=== PATIENT | female | born 1975 | race Caucasian/White ===

== ENCOUNTER 2022-09-16 12:37 | Outpatient (CLI) | payer OTHER, SELFPAY ==
--- OUTSIDE RECORDS SUMMARY | 2022-09-16 07:58 | XMS_ITS | Clinical Summary ---
:1975 Author Organization [facility] [place] [address] Care Team Providers Name Role Phone Pcp, No Unavailable Unavailable Pcp, No Primary Care Provider Unavailable Allergies No known active allergies Medications Medication Sig Dispensed Refills Start Date End Date Status levonorgestrel Inject 1 Device 1 Device 0 06/25/2015 Active intrauterine device intrauterine every (MIRENA) 20 mcg/24 hr 5 years. (5 years) IUD fluticasone (50 mcg Inhale 1 [place] into 3 Bottle 3 04/03/2018 Active per actuation) nasal both nostrils once solution daily. Will call (FLONASE)Indications: for refill Environmental allergies Hospital, Clinic, or Other Ordered Dose Route Frequency Start Date End Date Status Facility Administered Medication levonorgestrel intrauterine 1 Device IU Q 5 YEARS 06/25/2015 Active device 1 Device (MIRENA)Indications: Encounter for IUD insertion Active Problems Problem Noted Date Environmental allergies 07/08/2014 Immunizations Name Administration Dates Next Due AMB INFLUENZA, IIV4 (AGE=>6MOS) 08/07/2018 MDV (Flu Clinic Only) AMB Influenza, (Flumist) Live 08/10/2013 Intranasal,LAIV4 (Flu Clinic Only) AMB Influenza, IIV3 (Age >=3 09/05/2011, 09/20/2010 years)(Flu Clinic Only) AMB Influenza, IIV4 PF (=>6 mos 09/01/2020, 08/23/2019, 11/11/2016, Flulaval,Fluzone Fluarix)(Flu 09/23/2016 Clinic Only) Influenza, IIV3 (Age >=3 years) 07/31/2012 Influenza, IIV4 08/14/2015 Tdap 07/31/2012 Family History Medical History Relation Name Comments Good Health Father Hyperlipidemia Mother Hypertension Mother Diabetes Paternal Aunt Diabetes Paternal Uncle Relation Name Status Comments Father Mother Paternal Aunt Paternal Uncle Social History Tobacco Use Types Packs/Day Years Used Date Never Smoker Smokeless Tobacco: Never Used Tobacco Cessation: Counseling Given: Yes Alcohol Use Standard Drinks/Week Comments Yes 0 (1 standard drink = 0.6 oz pure alcoho l) 1-2 drinks a week Alcohol Habits Answer Date Recorded How often do you have a drink containing alcohol? Not asked How many drinks containing alcohol do you have on a Not aske d typical day when you are drinking? How often do you have six or more drinks on one Not asked occasion? Comment: 1-2 drinks a week 07/31/2012 Sex Assigned at Date Recorded Not on file Obstetrics History Para Term AB IAB SAB Ectopic Multiple Living Live Births 4 3 3 1 1 3 Date Outcome GA Total Labor/2nd/3rd Weight Sex Delivery Anes PTL Erika A 1 A5 Name Clin Labor Term Term Term SAB Last Filed Vital Signs Vital Sign Reading Time Taken Comments Blood Pressure 110/71 04/03/2018 2:29 PM CDT tower Pulse 72 04/03/2018 2:29 PM CDT Temperature 36.7 ??C (98.1 ??F) 08/04/2016 12:50 PM CDT Respiratory Rate - - Oxygen Saturation 98% 04/03/2018 2:29 PM CDT Inhaled Oxygen Concentration - - Weight 74.2 kg (163 lb 9.6 oz) 04/03/2018 2:29 PM CDT Height 163.4 cm (5' 4.33) 04/03/2018 2:29 PM CDT Body Mass Index 27.79 04/03/2018 2:29 PM CDT Plan of Treatment Health Maintenance Due Date Last Done Comments COVID-19 vaccine series (#1) 05/24/1976 Hepatitis C screening for age 0111/24/1993 18-79 BMI (ht and wt on same day) for 04/03/2019 04/03/2018, 03/2016 age 18+ Depression screening for age 12+ 04/03/2019 04/03/2018, 03/2016 Colonoscopy through age 75 2020 Mammogram for age 45-75 2020 06/13/2018, 04/12/2017 Influenza for age 9-49 06/30/2022 09/01/2020, 08/23/2019, 08/07/2018, Additional history exists Tetanus booster 07/31/2022 07/31/2012, 07/31/2012 Lipids for age 45-75 06/13/2023 06/13/2018, 05/30/2014 Pap test for age 21-65 04/02/2024 04/02/2021, 04/02/2021, 04/03/2018, Additional history exists Tdap Completed 07/31/2012 Results Not on filefrom Last 3 Months Insurance Payer Benefit Plan / Subscriber ID Effective Dates Phone Addre ss Type [employer] [id number] 2019-Present [address] [place] [address] Care Teams Adjuster Relationship Specialty Start Date End Date Pcp, No PCP - General 10/05/18 . Pcp, No 05/27/14 .
[2022-09-16 09:23] LABS: Albumin* 4.1 g/dL (3.3-5.0); Chloride* 106 mmol/L (96-114); Potassium* 4.1 mmol/L (3.6-5.1); Sodium* 140 mmol/L (135-149)
[2022-09-16 09:25] LABS: Cholesterol* 124 mg/dL (90-199)
[2022-09-16 09:26] LABS: Alanine Aminotransferase* 26 U/L (4-35); Alkaline Phosphatase* 62 U/L (40-150); Aspartate Amino Transferase* 36 U/L (12-35); Bilirubin Total* 0.7 mg/dL (0.1-1.5); Blood Urea Nitrogen* 13 mg/dL (5-24); Carbon Dioxide* 29 mmol/L (20-32); Creatinine* 0.8 mg/dL (0.5-1.5); Estimated Glomerular Filt Rate 92 ml/min; Glucose* 86 mg/dL (60-115); Triglycerides* 76 mg/dL (40-149)
[2022-09-16 09:27] LABS: HDL Cholesterol* 46 mg/dL (>=50); LDL Cholesterol Calculated 63 mg/dL (<100)
== END 2022-09-16 12:38 | disposition home or self-care (01) ==
PROVIDERS: PCP Family Medicine; Visit Provider Family Medicine
DX: Z01.419 Encounter for gynecological examination (general) (routine) without abnormal findings (principal); Z13.6 Encounter for screening for cardiovascular disorders; R74.01 Elevation of levels of liver transaminase levels; E66.3 Overweight
CPT/HCPCS: 80053; 80061

== ENCOUNTER 2022-09-26 14:28 | Outpatient (CLI) | payer OTHER, SELFPAY ==
--- NOTE | 2022-09-26 14:40 | CRLHL7_ITS ---
For Patients: As a result of the Century Cures Act, medical imaging exams and procedure reports are released immediately into your electronic medical record. You may view this report before your referring provider. If you have questions, please contact your health care provider. BILATERAL SCREENING MAMMOGRAM WITH COMPUTER-AIDED DETECTION TECHNIQUE: CC and MLO views were obtained. These mammographic images have been obtained using full-field digital technique. These mammographic images were interpreted with the benefit of computer-aided detection. COMPARISON FILM: 08/24/21, 07/24/20, 06/25/19. FINDINGS: There are scattered areas of fibroglandular density. IMPRESSION: There is no radiographic evidence for malignancy. ASSESSMENT: BI-RADS Category 1: Negative RECOMMENDATION: Routine screening mammogram in 1 year. A lay language report of this examination will be provided to the patient. CHUY REYNA M.D. Diagnostic Radiologist [email or web address] Transcribed: 3:[address]/Dictated by: Chuy Reyna MD @ 09/27/2022 12:47:00 PM (Electronically Signed)
--- OUTSIDE RECORDS SUMMARY | 2022-09-26 14:51 | XMS_ITS | Clinical Summary ---
:1975 Author Organization [facility] [place] [address] Care Team Providers Name Role Phone Pcp, No Unavailable Unavailable Pcp, No Primary Care Provider Unavailable Allergies No known active allergies Medications Medication Sig Dispensed Refills Start Date End Date Status levonorgestrel Inject 1 Device 1 Device 0 06/25/2015 Active intrauterine device intrauterine every (MIRENA) 20 mcg/24 hr 5 years. (5 years) IUD fluticasone (50 mcg Inhale 1 [place] into 3 Bottle 3 04/03/2018 Active per [...] Done Comments COVID-19 vaccine series (#1) 05/24/1976 HIV for age 15-65 1990 Hepatitis C screening for age 0111/24/1993 18-79 [...] Effective Dates Phone Addre ss Type Group [employer] [id number] 2019-Present [address] [place] [address] Care Teams Cop Winder Relationship Specialty Start Date End Date Pcp, No PCP - General 10/05/18 . Pcp, No 05/27/14 .
== END 2022-09-26 14:29 | disposition home or self-care (01) ==
LOC: MAMMO 14:29
PROVIDERS: PCP Family Medicine; Visit Provider Family Medicine
DX: Z12.31 Encounter for screening mammogram for malignant neoplasm of breast (principal)
CPT/HCPCS: 77063; 77067

== ENCOUNTER 2022-12-16 08:59 | Outpatient (CLI) | payer OTHER, SELFPAY | END 2022-12-16 09:00 | disposition home or self-care (01) | PROVIDERS: PCP Family Medicine; Visit Provider Family Medicine | DX: N39.0 Urinary tract infection, site not specified (principal) | CPT/HCPCS: 87086; 87186 ==

== ENCOUNTER 2023-10-31 07:59 | Outpatient (CLI) | payer OTHER, SELFPAY | END 2023-10-31 08:00 | disposition home or self-care (01) | LOC: NFLDREF 11-01 12:15 | PROVIDERS: PCP Family Medicine; Referring Provider Family Medicine; Visit Provider Family Medicine | DX: Z13.9 Encounter for screening, unspecified (principal); Z13.6 Encounter for screening for cardiovascular disorders | CPT/HCPCS: 80053; 80061 ==

== ENCOUNTER 2023-10-31 08:04 | Outpatient (CLI) | payer OTHER, SELFPAY ==
--- NOTE | 2023-10-31 08:15 | CRLHL7_ITS ---
For Patients: As a result of the Cures Act, medical imaging exams and procedure reports are released immediately into your electronic medical record. You may view this report before your referring provider. If you have questions, please contact your health care provider. BILATERAL SCREENING MAMMOGRAM WITH COMPUTER-AIDED DETECTION AND TOMOSYNTHESIS TECHNIQUE: CC and MLO views were obtained. These mammographic images have been obtained using full-field digital technique. These mammographic images were interpreted with the benefit of computer-aided detection. Breast Tomosynthesis was used in this interpretation. COMPARISON FILM: 09/26/22, 08/24/21, 07/24/20. FINDINGS: There are scattered areas of fibroglandular density IMPRESSION: There is no radiographic evidence for malignancy. ASSESSMENT: BI-RADS Category 1: Negative RECOMMENDATION: Routine screening mammogram in 1 year. A lay language report of this examination will be provided to the patient. Chuy May M.D. Diagnostic Radiologist [email or web address] NIVIA/cristiano Transcribed: 4:35 p.mBiju quinonez/Dictated by: Chuy May MD @ 10/31/2023 11:18:00 AM (Electronically Signed)
== END 2023-10-31 08:05 | disposition home or self-care (01) ==
LOC: MAMMO 08:05
PROVIDERS: PCP Family Medicine; Visit Provider Family Medicine
DX: Z12.31 Encounter for screening mammogram for malignant neoplasm of breast (principal)
CPT/HCPCS: 77063; 77067

== ENCOUNTER 2023-11-08 07:45 | Outpatient (CLI) | payer OTHER, SELFPAY ==
--- OUTSIDE RECORDS SUMMARY | 2023-11-08 07:48 | XMS_ITS | Clinical Summary ---
Author Name Unknown Organization [facility] Address [place], [place] [address] Care Team Providers Care Environmental Auditor Name Role Phone Pcp, No Unavailable Unavailable Pcp, No Primary Care Provider Unavailabl e Allergies No known active allergies Medications Medication Sig Dispensed Refills Start Date End Date Status levonorgestrel intrauterine device (MIRENA) 20 mcg/24 hr (5 years) IUD Inject 1 Device intrauterine every 5 years. 1 Device 0 06/25/2015 Active fluticasone (50 mcg per actuation) nasal solution (FLONASE)Indications :Environmental allergies Inhale 1 [place] into both nostrils once daily. Will call for refill 3 Bottle 3 04/03/2018 Active Hospital, Clinic, or Other Facility Administered Medication Ordered Dose Route Frequency Start Date End Date Status levonorgestrel intrauterine device 1 Device (MIRENA)Indications:Encounter for IUD insertion 1 Device IU Q 5 YEARS 06/25/2015 Active Active Problems Problem Noted Date Diagnosed Date Environmental allergies 07/08/2014 Immunizations Name Administration Dates Next Due AMB INFLUENZA, IIV4 (AGE=>6M OS) MDV (Flu Clinic Only) 08/07/2018 AMB Influenza, (Flumist) Erika e Intranasal,LAIV4 (Flu Clinic Only) 08/10/2013 AMB Influenza, IIV3 (Age >=3 years)(Flu Clinic Only) 09/05/2011,09/20/2010 AMB Influenza, IIV4 PF (=>6 mos Flulaval,Fluzone Fluarix)(Flu Clinic Only) 09/01/2020,08/23/2019,08/31/2017, 01 6 Influenza, IIV3 (Age >=3 years) 07/31/2012 Influenza, IIV4 08/14/2015 Tdap 07/31/2012 Family History Medical History Relation Name Comments Good Health Father Hyperlipidemia Mother Hypertension Mother Diabetes Paternal Aunt Diabetes Paternal Uncle Relation Name Status Comments Father Mother Paternal Aunt Paternal Uncle Social History Tobacco Use Types Packs/Day Years Used Date Smoking Tobacco: Never Smokeless Tobacco: Never Tobacco Cessation:Counseling Given: Yes Alcohol Use Standard Drinks/Week Comments Yes 0 (1 standard drink = 0.6 oz pur e alcohol) 1-2 drinks a week PHQ-2 Answer Date Recorded PHQ-2 Score 0 01/01/2019 Sex and Gender Information Value Date Recorded Sex Assigned at Not on file Gender Identity Not on file Sexual Orientation Not on file Obstetrics History Para Term AB IAB SAB Ectopic Multiple Livin g Live Births 4 3 3 1 1 3 Date Outcome GA Total Labor Labor/2nd/3rd Weight Sex Delivery Anes PTL Erika A1 A5 Name Cl in Term Term Term SAB Last Filed Vital Signs Vital Sign Reading Time Taken Comments Blood Pressure 124/64 04/13/2023 11:13 AM CDT Pulse 67 04/13/2023 11:13 AM CDT Temperature 36.7 ??C (98.1 ??F) 08/04/2016 12:50 PM C DT Respiratory Rate 16 04/13/2023 11:13 AM CDT Oxygen Saturation 97% 04/13/2023 11:13 AM CDT Inhaled Oxygen Concentration - - Weight 74.2 kg (163 lb 9.6 oz) 04/03/2018 2:29 P M CDT Height 163.4 cm (5' 4.33) 04/03/2018 2:29 PM CD T Body Mass Index 27.79 04/03/2018 2:29 PM CDT Plan of Treatment Health Maintenance Due Date Last Done Comments HIV for age 15-65 1990 Hepatitis C screening for age 18-79 1993 BMI (ht and wt on same day) for age 18+ 04/03/2019 04/03/2018, 08/04/2016 Depression screening for age 12+ 04/03/2019 04/03/2018, 08/04/2016 Mammogram for age 45-75 2020 06/13/2018, 04/12 Tetanus booster 07/31/2022 07/31/2012, 07/31/2012 Lipids for age 45-75 06/13/2023 06/13/2018, 05/30/20 14 COVID-19 vaccine series (2022-24 season) 2023 08/04/2022, 09/02/2021, 01/21/2021, Additional history exists Influenza for age 9-49 06/30/2023 0, 08/23/2019, 08/07/2018, Additional history exists Pap test for age 21-65 04/02/2024 1, 04/02/2021, 04/03/2018, Additional history exists Colonoscopy through age 75 04/13/2033 04/13/2023, Tdap Completed 07/31/2012 Pneumococcal series for age 6-64 Aged Out No longer eligible based on patient's age to complete this topic Care Teams Environmental Auditor Relationship Specialty Start Date End Date Pcp, No . PCP - General 10/05/18 Pcp, No . 05/27/14
== END 2023-11-08 07:46 | disposition home or self-care (01) ==
PROVIDERS: PCP Family Medicine; Visit Provider Family Medicine
DX: Z00.00 Encounter for general adult medical examination without abnormal findings (principal); R79.89 Other specified abnormal findings of blood chemistry; E66.3 Overweight; R74.8 Abnormal levels of other serum enzymes; Z13.21 Encounter for screening for nutritional disorder; Z71.3 Dietary counseling and surveillance
CPT/HCPCS: 80053; 80061; 82306; 82607; 82728; 86803; 87340

== ENCOUNTER 2023-11-16 07:09 | Outpatient (CLI) | payer OTHER, SELFPAY ==
--- OUTSIDE RECORDS SUMMARY | 2023-11-16 07:11 | XMS_ITS | Clinical Summary ---
Author Name Unknown Organization [facility] Address [place], [place] [address] Care Team Providers Care Wellness Educator Name Role Phone Pcp, No Unavailable Unavailable Pcp, No Primary Care Provider Unavailabl e Allergies No known active allergies Medications Medication Sig Dispensed Refills Start Date End Date Status levonorgestrel intrauterine device (MIRENA) 20 mcg/24 hr (5 years) IUD Inject 1 Device intrauterine every 5 years. 1 Device 0 06/25/2015 Active fluticasone (50 mcg per actuation) nasal solution (FLONASE)Indications :Environmental allergies Inhale 1 [place] into both nostrils once daily. Will call [...] age to complete this topic Care Teams Wellness Educator Relationship Specialty Start Date End Date Pcp, No . PCP - General 10/05/18 Pcp, No . 05/27/14
--- NOTE | 2023-11-16 07:15 | CRLHL7_ITS ---
For Patients: As a result of the Century Cures Act, medical imaging exams and procedure reports are released immediately into your electronic medical record. You may view this report before your referring provider. If you have questions, please contact your health care provider. INDICATION: elevated LFTS, hx cholecystectomy COMPARISON: 03/24/2020 TECHNIQUE: Real time verma scale imaging and color Doppler analysis was performed of the right upper quadrant. FINDINGS: The patient`s liver is of normal size and has uniform echogenicity. There is a normal appearance of the hepatic IVC and proximal abdominal aorta. There is no evidence of ascites. The gallbladder is absent. The common bile duct is of normal size and measures 7 mm in diameter at the level of the omar hepatis. The pancreas appears normal. There is no evidence of a stone or hydronephrosis within the right kidney. The right kidney measures 9.7 cm in length. IMPRESSION: Status post cholecystectomy. Remainder of the examination is unremarkable. Dictated by Chuy May MD @ 11/16/2023 9:06:34 AM (Electronically Signed)
== END 2023-11-16 07:10 | disposition home or self-care (01) ==
LOC: US 07:10
PROVIDERS: PCP Family Medicine; Visit Provider Family Medicine
DX: R79.89 Other specified abnormal findings of blood chemistry (principal)
CPT/HCPCS: 76705

== ENCOUNTER 2024-12-03 19:02 | Outpatient (CLI) | payer OTHER, SELFPAY ==
--- NOTE | 2024-12-03 19:20 | CRLHL7_ITS ---
For Patients: As a result of the Cures Act, medical imaging exams and procedure reports are released immediately into your electronic medical record. You may view this report before your referring provider. If you have questions, please contact your health care provider. BILATERAL SCREENING MAMMOGRAM WITH COMPUTER-AIDED DETECTION AND TOMOSYNTHESIS TECHNIQUE: CC and MLO views were obtained. These mammographic images have been obtained using full-field digital technique. These mammographic images were interpreted with the benefit of computer-aided detection. Breast Tomosynthesis was used in this interpretation. COMPARISON FILM: 10/31/23, 09/26/22, 08/24/21. FINDINGS: There are scattered areas of fibroglandular density IMPRESSION: There is no radiographic evidence for malignancy. ASSESSMENT: BI-RADS Category 1: Negative RECOMMENDATION: Routine screening mammogram in 1 year. A lay language report of this examination will be provided to the patient. Chuy May M.D. Diagnostic Radiologist [email or web address] NIVIA/cristiano Transcribed: 3:05 p.lubna quinonez/Dictated by: Chuy May MD @ 12/04/2024 10:48:00 AM (Electronically Signed)
== END 2024-12-03 19:03 | disposition home or self-care (01) ==
LOC: MAMMO 19:02
PROVIDERS: PCP Family Medicine; Visit Provider Internal Medicine
DX: Z12.31 Encounter for screening mammogram for malignant neoplasm of breast (principal)
CPT/HCPCS: 77063; 77067

== ENCOUNTER 2025-03-27 07:45 | Outpatient (CLI) | payer OTHER, SELFPAY | END 2025-03-27 07:46 | disposition home or self-care (01) | LOC: NFLDREF 03-30 12:13 | PROVIDERS: PCP Family Medicine; Referring Provider Family Medicine; Visit Provider Family Medicine | DX: R79.89 Other specified abnormal findings of blood chemistry (principal); E53.8 Deficiency of other specified B group vitamins; E78.5 Hyperlipidemia, unspecified; E78.6 Lipoprotein deficiency | CPT/HCPCS: 80053; 80061; 82607 ==